=== PATIENT | female | born 1980 | race Caucasian/White ===

== ENCOUNTER 2017-10-21 05:32 | Day surgery (SDC) | payer OTHER | END 2017-10-21 12:59 | disposition home or self-care (01) | LOC: CIR.AMB 05:32 | DX: O02.1 Missed abortion (principal) ==

== ENCOUNTER 2022-01-31 05:25 | Day surgery (SDC) | payer OTHER ==
[~2022-01-31 05:25] MED LIST: GLUMETZA500 MG PO; PROCARDI PO; SYNTHROID75 MCG PO
== END 2022-01-31 10:45 | disposition home or self-care (01) ==
LOC: CIR.AMB 05:25
PROVIDERS: ATTEND Specialist
DX: O02.1 Missed abortion (principal); Z20.822 Contact with and (suspected) exposure to COVID-19; I10 Essential (primary) hypertension; E03.9 Hypothyroidism, unspecified; Z79.84 Long term (current) use of oral hypoglycemic drugs; E11.9 Type 2 diabetes mellitus without complications

== ENCOUNTER 2023-02-13 04:20 | Inpatient (IN) | payer OTHER ==
[~2023-02-13] VITALS: Ht 162.6 cm; Wt 3.2 kg
[2023-02-13] MEDS ORDERED: PRENATAL TABLE1 EAC1 PO (05:19)
[2023-02-13] MEDS ORDERED: SYNTHROID75 MCG PO (05:20)
[2023-02-13] MEDS ORDERED: NIFEDIPINE20 MG PO (05:20)
== END 2023-02-16 12:53 | disposition home or self-care (01) | DRG 788 ==
LOC: LDR 04:20 → OB/GYN 04:20 → O/R 09:55 → OB/GYN 10:41
PROVIDERS: ADMIT Specialist; ATTEND Specialist
PROC: 4A1HXCZ Monitoring of Products of Conception, Cardiac Rate, External Approach (ICD-10-PCS; 2023-02-13)
PROC: 10D00Z1 Extraction of Products of Conception, Low, Open Approach (ICD-10-PCS; principal; 2023-02-13 07:00)
DX: O32.2XX0 Maternal care for transverse and oblique lie, not applicable or unspecified (principal); O69.89X0 Labor and delivery complicated by other cord complications, not applicable or unspecified; Z3A.38 38 weeks gestation of pregnancy; Z37.0 Single live birth; Z20.822 Contact with and (suspected) exposure to COVID-19